=== PATIENT | female | born 1945 | race Caucasian/White ===

== ENCOUNTER 2021-02-01 10:47 | Inpatient (IN) | payer MEDICARE ==
[2021-02-01 11:21] LABS: #Monocytes 0.5 10x3/uL (0.0-1.1); #Neutrophils 2.7 10x3/uL (1.5-8.4); %Basophils 0.2 % (0.0-2.0); %Lymphocytes 22.1 % (18.0-47.0); %Monocytes 12.4 % (0.0-10.0); %Neutrophils 64.1 % (40.0-75.0); Hemoglobin 11.1 g/dL (12.0-15.5); Mean Corpuscular HGB CONC 33.3 g/dL (32.0-36.0); Mean Corpuscular Hemoglobin 30.4 pg (27.0-33.0); Mean Corpuscular Volume 91.2 fl (81.6-98.3); Mean Platelet Volume 8.7 fl (7.4-10.4); Platelet Count 248 10x3/uL (150-450); RBC Distribution Width 13.2 % (11.5-14.5); Red Blood Cell (RBC) Count 3.65 10x6/uL (3.90-5.03); White Blood Cell (WBC) Count 4.2 10x3/uL (3.5-10.5)
[2021-02-01 11:56] LABS: ALT (SGPT) 11 U/L (8-55); AST (SGOT) 17 U/L (5-34); Albumin 3.9 g/dL (3.4-4.8); Alkaline Phosphatase 61 U/L (40-110); Anion Gap 15 mmol/L (10-20); BUN (Urea Nitrogen) 21 mg/dL (9.8-20.1); Bilirubin, Total 0.4 mg/dL (0.2-1.2); Calc. Creatinine Clearance 0 mL/min (70-130); Calcium 9.5 mg/dL (7.8-10.44); Carbon Dioxide 29 mmol/L (23-31); Chloride 99 mmol/L (98-107); Globulin 2.8 g/dL (2.4-3.5); Glucose 85 mg/dL (83-110); Potassium 3.7 mmol/L (3.5-5.1); Protein, Total 6.7 g/dL (5.8-8.1); Sodium 139 mmol/L (136-145)
[2021-02-01 12:50] LABS: Bilirubin Neg (Negative); Blood, Urine Negative (Negative); Clarity Clear (Clear); Glucose, Urine (Dipstick) Normal (Negative); Ketone, Urine Negative (Negative); Leukocyte Negative (Negative); Nitrite Negative (Negative); Protein, Urine (Dipstick) Negative (Neg-Trace); Urobilinogen Normal mg/dL (Less than 2)
[2021-02-01 14:41] VITALS: BMI 22.6
[2021-02-01] MEDS ORDERED: Ondansetron PF 4 MG/2 ML Vial IVP PRN (14:42)
[2021-02-01] MEDS ORDERED: Acetaminophen 325 MG TAB PO PRN (14:42)
[2021-02-01] MEDS ORDERED: Sodium Chloride 0.9% 1,000 ML IV SCH (16:00)
[2021-02-01] MEDS: Apixaban 5 MG TAB PO SCH (20:02)
[2021-02-01] MEDS: Atorvastatin Calcium 40 MG TAB PO SCH (20:02)
[2021-02-01] MEDS: Escitalopram Oxalate 10 mg Tablet PO SCH (20:03)
[2021-02-01 21:58] LABS: SARS-CoV-2 PCR by NAA Not Detected (NotDetected)
[2021-02-02 05:59] LABS: ALT (SGPT) 10 U/L (8-55); AST (SGOT) 17 U/L (5-34); Albumin 3.3 g/dL (3.4-4.8); Alkaline Phosphatase 52 U/L (40-110); Anion Gap 13 mmol/L (10-20); BUN (Urea Nitrogen) 21 mg/dL (9.8-20.1); Bilirubin, Total 0.5 mg/dL (0.2-1.2); Calc. Creatinine Clearance 47 mL/min (70-130); Calcium 8.8 mg/dL (7.8-10.44); Carbon Dioxide 24 mmol/L (23-31); Cardiac Risk 3.8 (Less than 4.5); Chloride 104 mmol/L (98-107); Cholesterol 145 mg/dl (< 200 Desired); Globulin 2.8 g/dL (2.4-3.5); Glucose 91 mg/dL (83-110); HDL Cholesterol 38 mg/dL (>60 Neg Risk); LDL Cholesterol, Calculated 89 mg/dL; Potassium 3.6 mmol/L (3.5-5.1); Protein, Total 6.1 g/dL (5.8-8.1); Sodium 137 mmol/L (136-145); Triglycerides 91 mg/dL (Less than 150)
[2021-02-02 06:01] LABS: #Eosinphils 0.1 10x3/uL (0.0-0.5); #Monocytes 0.6 10x3/uL (0.0-1.1); #Neutrophils 2.3 10x3/uL (1.5-8.4); %Basophils 0.2 % (0.0-2.0); %Eosinophils 1.2 % (0.0-6.0); %Lymphocytes 27.6 % (18.0-47.0); %Monocytes 14.3 % (0.0-10.0); %Neutrophils 56.7 % (40.0-75.0); Hemoglobin 10.3 g/dL (12.0-15.5); Mean Corpuscular HGB CONC 33.3 g/dL (32.0-36.0); Mean Corpuscular Hemoglobin 30.5 pg (27.0-33.0); Mean Corpuscular Volume 91.4 fl (81.6-98.3); Platelet Count 223 10x3/uL (150-450); RBC Distribution Width 13.4 % (11.5-14.5); Red Blood Cell (RBC) Count 3.38 10x6/uL (3.90-5.03); White Blood Cell (WBC) Count 4.1 10x3/uL (3.5-10.5)
[2021-02-02] MEDS: Levothyroxine Sodium 88 MCG TAB PO SCH (06:28)
[2021-02-02] MEDS: Liothyronine Sodium 5 MCG TAB PO SCH (08:27)
[2021-02-02] MEDS: Apixaban 5 MG TAB PO SCH ×2 (08:27→21:00)
[2021-02-02] MEDS: Aspirin 81 mg Enteric Coated Tablet PO SCH (08:27)
[2021-02-02 09:31] LABS: Hemoglobin A1c 5.5 % (4.0-6.0)
[2021-02-02] MEDS ORDERED: Lisinopril 10 MG TAB PO SCH (21:00)
[2021-02-02] MEDS: Escitalopram Oxalate 10 mg Tablet PO SCH (21:00)
[2021-02-02] MEDS: Atorvastatin Calcium 40 MG TAB PO SCH (21:00)
[2021-02-03] MEDS: Levothyroxine Sodium 88 MCG TAB PO SCH (05:45)
[2021-02-03 06:10] LABS: Iron 46 ug/dL (50-170); Iron Binding Capacity, Total 188 mcg/dL (265-497)
[2021-02-03] MEDS: Aspirin 81 mg Enteric Coated Tablet PO SCH (07:54)
[2021-02-03] MEDS: Apixaban 5 MG TAB PO SCH (07:54)
[2021-02-03] MEDS: Liothyronine Sodium 5 MCG TAB PO SCH (07:54)
[2021-02-03] MEDS ORDERED: Atenolol 25 MG TAB PO SCH (09:00)
[2021-02-03] MEDS ORDERED: Lisinopril 10 MG TAB PO SCH ×2 (09:00→09:15)
[2021-02-03] MEDS ORDERED: Folic Acid 1 MG TAB PO SCH (09:00)
[2021-02-03 15:45] VITALS: TEMP 98.4
[2021-02-03 16:14] VITALS: BP 177/80
[2021-02-04] MEDS ORDERED: Lisinopril 20 MG TAB PO SCH (09:00)
== END 2021-02-03 17:38 | disposition home or self-care (01) | DRG 309 ==
LOC: CSHERS 10:47 → CSHTELE 14:21 → OBSVTOIN 02-02 21:17
PROVIDERS: ADMIT Internal Medicine; ATTEND Family Medicine
DX: R00.1 Bradycardia, unspecified (principal); N17.9 Acute kidney failure, unspecified; E85.4 Organ-limited amyloidosis; I48.91 Unspecified atrial fibrillation; Z20.822 Contact with and (suspected) exposure to COVID-19; T46.1X5A Adverse effect of calcium-channel blockers, initial encounter; I10 Essential (primary) hypertension; R32 Unspecified urinary incontinence; Z88.1 Allergy status to other antibiotic agents; Z88.5 Allergy status to narcotic agent; Z88.8 Allergy status to other drugs, medicaments and biological substances; Z79.01 Long term (current) use of anticoagulants; Z79.82 Long term (current) use of aspirin; Z79.899 Other long term (current) drug therapy; E03.9 Hypothyroidism, unspecified; Z79.890 Hormone replacement therapy; F41.9 Anxiety disorder, unspecified; F32.9 Major depressive disorder, single episode, unspecified; G47.30 Sleep apnea, unspecified; G30.9 Alzheimer's disease, unspecified; F02.80 Dementia in other diseases classified elsewhere, unspecified severity, without behavioral disturbance, psychotic disturbance, mood disturbance, and anxiety; I68.0 Cerebral amyloid angiopathy
CPT/HCPCS: 36415; 70450; 70551; 71045; 80053; 80061; 81003; 82607; 82746; 83036; 83540; 83550; 84443; 84484; 85025; 87635; 93005; 93306; 93880; G0378; U0003; U0005

== ENCOUNTER 2021-02-15 11:10 | Emergency (ER) | payer MEDICARE ==
[2021-02-15 12:06] LABS: #Eosinphils 0.1 10x3/uL (0.0-0.5); #Monocytes 0.7 10x3/uL (0.0-1.1); #Neutrophils 3.1 10x3/uL (1.5-8.4); %Basophils 0.2 % (0.0-2.0); %Eosinophils 2.5 % (0.0-6.0); %Lymphocytes 18.3 % (18.0-47.0); %Monocytes 14.2 % (0.0-10.0); %Neutrophils 64.6 % (40.0-75.0); Hemoglobin 10.9 g/dL (12.0-15.5); Mean Corpuscular HGB CONC 33.1 g/dL (32.0-36.0); Mean Corpuscular Volume 93.5 fl (81.6-98.3); Mean Platelet Volume 9.3 fl (7.4-10.4); Platelet Count 248 10x3/uL (150-450); RBC Distribution Width 13.4 % (11.5-14.5); Red Blood Cell (RBC) Count 3.52 10x6/uL (3.90-5.03); White Blood Cell (WBC) Count 4.8 10x3/uL (3.5-10.5)
[2021-02-15 12:20] LABS: ALT (SGPT) 15 U/L (8-55); AST (SGOT) 16 U/L (5-34); Albumin 3.5 g/dL (3.4-4.8); Alkaline Phosphatase 58 U/L (40-110); Anion Gap 14 mmol/L (10-20); BUN (Urea Nitrogen) 22 mg/dL (9.8-20.1); Bilirubin, Total 0.5 mg/dL (0.2-1.2); Calc. Creatinine Clearance 0 mL/min (70-130); Calcium 9.1 mg/dL (7.8-10.44); Carbon Dioxide 28 mmol/L (23-31); Chloride 101 mmol/L (98-107); Globulin 2.7 g/dL (2.4-3.5); Glucose 104 mg/dL (83-110); Potassium 3.9 mmol/L (3.5-5.1); Protein, Total 6.2 g/dL (5.8-8.1); Sodium 139 mmol/L (136-145)
[2021-02-15] MEDS ORDERED: Boostrix 0.5 ML (Tdap) VIAL ONE (13:37)
== END 2021-02-15 13:59 | disposition home or self-care (01) ==
LOC: CSHERS 11:10
DX: R55 Syncope and collapse (principal); S00.01XA Abrasion of scalp, initial encounter; E03.9 Hypothyroidism, unspecified; I48.91 Unspecified atrial fibrillation; I10 Essential (primary) hypertension; Z79.01 Long term (current) use of anticoagulants; Z79.82 Long term (current) use of aspirin; Z79.899 Other long term (current) drug therapy; W19.XXXA Unspecified fall, initial encounter
CPT/HCPCS: 36415; 70450; 71045; 72125; 80053; 84484; 85025; 90471; 90715; 93005